=== PATIENT | male | born 1955 | race Two or more races ===

== ENCOUNTER 2019-06-25 07:41 | Inpatient (IN) | payer MEDICARE, OTHER ==
[~2019-06-25] VITALS: Ht 154.9 cm; Wt 61.6 kg
[2019-06-25] MEDS ORDERED: ACETAMINOPHEN 650 mg PER 20 mL UD PO ONE (10:30)
[2019-06-25] MEDS ORDERED: ACETAMINOPHEN 500 MG TAB PO ONE ×3 (10:35→17:15)
[2019-06-25 10:42] LABS: Basophils # (auto) 0.1 10 ^3/uL (0-0.2); Basophils % (auto) 0.3 % (0.0-2.0); Eosinophils # (auto) 0 10 ^3/uL (0-0.8); Hematocrit 33.6 % (41.0-53.0); Lymphocytes # (auto) 0.7 10 ^3/uL (0.4-5.4); Lymphocytes % (auto) 3.7 % (10.0-50.0); Mean Corpuscular Hemoglobin 29.3 pg (28.0-32.0); Mean Corpuscular Hgb Conc. 32.9 g/dL (32.0-36.0); Mean Corpuscular Volume 89.2 fL (80.0-100.0); Monocytes # (auto) 0.5 10 ^3/uL (0-1.3); Monocytes % (auto) 2.8 % (0.0-12.0); Neutrophils # (auto) 17.6 10 ^3/uL (1.6-8.6); Neutrophils % (auto) 93.2 % (37.0-80.0); Platelet Count (auto) 289 10^3/uL (140-450); Red Blood Cells 3.77 10^6/uL (4.5-5.90); Red Cell Distribution Width 14.2 % (11.8-14.3); White Blood Cell 18.8 10^3/uL (4.4-10.8)
[2019-06-25 11:01] LABS: Albumin 3.1 g/dL (3.4-5.0); Potassium 3.9 mmol/L (3.5-5.1)
[2019-06-25 11:04] LABS: BUN/Creatinine Ratio 20.7; Bilirubin, Total 0.6 mg/dL (0.2-1.0); Total Protein 7.6 g/dL (6.4-8.2)
[2019-06-25] MEDS ORDERED: cefTRIAXone 1GM/50ML D5W 50 ML IV ONE (11:15)
[2019-06-25] MEDS ORDERED: DEXTROSE (50%) 50ML SYRG IV PRN (12:00)
[2019-06-25] MEDS ORDERED: hydrALAZINE HCL 20 MG/ML VL IV PRN (12:00)
[2019-06-25] MEDS ORDERED: ONDANSETRON HCL 4 MG/2 ML VIAL IV PRN (12:00)
[2019-06-25] MEDS: AZITHROMYCIN 500MG/ 250ML 250 ML IV SCH (12:00)
[2019-06-25 12:24] LABS: Magnesium 1.8 mg/dL (1.6-2.6)
[2019-06-25] MEDS ORDERED: NITROGLYCERIN 0.4 MG SL TAB SL PRN (12:45)
[2019-06-25] MEDS ORDERED: MORPHINE SULF INJ 2 MG/ML SYRINGE 1ML IV PRN (12:45)
[2019-06-25] MEDS ORDERED: SODIUM CHLORIDE 0.9% 1,000 ML IV ONE (14:00)
[2019-06-25 14:09] VITALS: BP 116/67
[2019-06-25] MEDS ORDERED: HYDR25TA4 PO (14:27)
[2019-06-25] MEDS ORDERED: ATOR80TA PO (14:27)
[2019-06-25] MEDS ORDERED: LEVEMIR SC (14:27)
[2019-06-25] MEDS ORDERED: SITA50TA28 PO (14:27)
[2019-06-25] MEDS ORDERED: CETI10TA80 PO (14:27)
[2019-06-25] MEDS ORDERED: LOSA-39 PO (14:27)
[2019-06-25] MEDS ORDERED: ASPI-404 PO (14:27)
[2019-06-25] MEDS ORDERED: VENL75TA PO (14:27)
[2019-06-25] MEDS ORDERED: GLIM2TAB33 PO (14:27)
[2019-06-25] MEDS ORDERED: BACL10TA PO (14:27)
[2019-06-25] MEDS ORDERED: TRAZ50TA2 PO (14:27)
[2019-06-25] MEDS ORDERED: AMLO5TAB15 PO (14:27)
[2019-06-25 14:58] VITALS: BP 119/66
[2019-06-25] MEDS: MORPHINE SULF INJ 2 MG/ML SYRINGE 1ML IV PRN ×2 (15:24→18:15)
[2019-06-25] MEDS: ACETAMINOPHEN 500 MG TAB PO PRN ×2 (15:46→23:45)
[2019-06-25 16:28] VITALS: BP 130/71
--- NOTE | 2019-06-25 16:41 | NUR ---
TEMPERATURE PATIENTS ORAL TEMPERATURE 103.5, WILL APPLY COOLING MEASURES AND CONTINUE TO MONITOR
[2019-06-25] MEDS: ACCU-CHEK COMFORT CURVE STRIP VI SCH ×2 (17:20→22:13)
[2019-06-25] MEDS: InsuLIN REG 1unit/0.01ml Soln (100units/ml) SC SCH ×2 (17:23→22:12)
--- NOTE | 2019-06-25 17:46 | NUR ---
REASSESSMENT OF TEMPERATURE PATIENT ORAL TEMPERATURE 100.4, WILL CONTINUE WITH COOLING MEASURES AND MONITORING.
[2019-06-25] MEDS: ALBUTEROL SULF 2.5 MG/0.5ML(0.5%) NEB SOLN NEB SCH (17:56)
[2019-06-25] MEDS: IPRATROPIUM BROM 0.5 MG/2.5ML INH SOL NEB SCH (17:56)
--- NOTE | 2019-06-25 19:00 | NUR ---
Opening Shift Note Assumed care of patient, awake and alert. No S/S of distress/SOB or pain currently. Family at bedside. Pt currently to be with no blankets and with ice packs to lower temperature. Current temperature is 100.4. Will continue to monitor temperature and take cooling measures as needed.
[2019-06-25 20:00] VITALS: BP 145/79
--- NOTE | 2019-06-25 21:00 | NUR ---
Temperature down Temperature currently at 98.9, will continue to monitor.
[2019-06-25 22:00] VITALS: BP 145/79
--- NOTE | 2019-06-25 22:00 | NUR ---
Temperature going up Patients temperature at 99.8, will continue cooling measures and reassess pt.
--- NOTE | 2019-06-25 23:00 | NUR ---
Temperature cont. to go up. Pt found with blanket, current temperature at 101.3, will continue with cooling measures and administer tylenol as needed.
--- NOTE | 2019-06-26 02:30 | NUR ---
Temperature going back down. Pts temperature at 98.2 will tylenol and cooling measures, will continue to monitor.
[2019-06-26 03:34] LABS: Urine Bacteria NONE SEEN /hpf (None Seen); Urine Blood Negative /uL (Negative); Urine Specific Gravity 1.008 (1.001-1.035); Urine WBC <1 /hpf (0 - 3)
[2019-06-26] MEDS: MORPHINE SULF INJ 2 MG/ML SYRINGE 1ML IV PRN (03:58)
[2019-06-26 05:00] VITALS: BP 128/73
[2019-06-26 06:03] LABS: Basophils # (auto) 0 10 ^3/uL (0-0.2); Basophils % (auto) 0.3 % (0.0-2.0); Eosinophils # (auto) 0 10 ^3/uL (0-0.8); Eosinophils % (auto) 0.4 % (0.0-7.0); Hematocrit 30.2 % (41.0-53.0); Hemoglobin 10.6 g/dL (13.5-17.5); Lymphocytes # (auto) 1.3 10 ^3/uL (0.4-5.4); Lymphocytes % (auto) 11.8 % (10.0-50.0); Mean Corpuscular Hemoglobin 30.9 pg (28.0-32.0); Mean Corpuscular Hgb Conc. 35.2 g/dL (32.0-36.0); Mean Corpuscular Volume 87.8 fL (80.0-100.0); Monocytes # (auto) 0.8 10 ^3/uL (0-1.3); Monocytes % (auto) 7.7 % (0.0-12.0); Neutrophils # (auto) 8.7 10 ^3/uL (1.6-8.6); Neutrophils % (auto) 79.8 % (37.0-80.0); Platelet Count (auto) 260 10^3/uL (140-450); Red Blood Cells 3.44 10^6/uL (4.5-5.90); Red Cell Distribution Width 14.1 % (11.8-14.3); White Blood Cell 10.9 10^3/uL (4.4-10.8)
[2019-06-26] MEDS: ACCU-CHEK COMFORT CURVE STRIP VI SCH ×4 (06:18→21:48)
[2019-06-26 06:19] LABS: BUN/Creatinine Ratio 23.7; Calcium 9.2 mg/dL (8.5-10.1); Potassium 4.5 mmol/L (3.5-5.1)
[2019-06-26] MEDS: InsuLIN REG 1unit/0.01ml Soln (100units/ml) SC SCH ×4 (06:20→21:48)
[2019-06-26] MEDS: IPRATROPIUM BROM 0.5 MG/2.5ML INH SOL NEB SCH ×3 (06:42→19:08)
[2019-06-26] MEDS: ALBUTEROL SULF 2.5 MG/0.5ML(0.5%) NEB SOLN NEB SCH ×3 (06:42→19:08)
--- NOTE | 2019-06-26 07:40 | NUR ---
Opening Shift Note Assumed care of patient, awake and alert. No S/S of distress/SOB or pain. For safety, patients bed is locked, in the lowest position, with 2 side rails up and the call light with in reach. Patients family members currently at bedside. Instructed on POC and to call for assist PRN, will continue to monitor for any changes in condition.
[2019-06-26 08:00] VITALS: BP 131/71
[2019-06-26] MEDS: cefTRIAXone 1GM/50ML D5W 50 ML IV SCH (08:24)
[2019-06-26 09:00] VITALS: BP 131/71
[2019-06-26] MEDS: FAMOTIDINE 20 MG TAB PO SCH (09:26)
[2019-06-26] MEDS: AZITHROMYCIN 500MG/ 250ML 250 ML IV SCH (09:26)
[2019-06-26] MEDS: HYDROcodone-ACET 5/325MG TAB PO PRN (12:52)
[2019-06-26 13:00] VITALS: BP 140/72
--- NOTE | 2019-06-26 19:00 | NUR ---
Opening Shift Note Assumed care of patient, awake and alert. No S/S of distress/SOB or pain. Instructed on POC and to call for assist PRN, will continue to monitor for changes Q1hr and PRN.
[2019-06-26 22:00] VITALS: BP 138/73
[2019-06-27 05:00] VITALS: BP 151/81
[2019-06-27] MEDS: ACCU-CHEK COMFORT CURVE STRIP VI SCH ×3 (06:36→16:40)
[2019-06-27] MEDS: InsuLIN REG 1unit/0.01ml Soln (100units/ml) SC SCH ×3 (06:36→16:44)
[2019-06-27] MEDS: ALBUTEROL SULF 2.5 MG/0.5ML(0.5%) NEB SOLN NEB SCH ×2 (06:41→12:07)
[2019-06-27] MEDS: IPRATROPIUM BROM 0.5 MG/2.5ML INH SOL NEB SCH ×2 (06:41→12:07)
--- NOTE | 2019-06-27 06:51 | NUR ---
IV insertion IV access to left AC obtained, via clean sterile technique by inserting 20 gauge catheter after first attempt. IV secured properly. No trauma to site. Patient tolerated procedure well.
--- NOTE | 2019-06-27 07:48 | NUR ---
Opening Note Assumed pt care from NOC nurse. Pt is a/ox4 with no s/s of distress or SOB. Pt is currently sitting upright in bed with mild c/o pain loacted in his upper back, 09/26; discussed available pain medications. Discussed POC with pt; pt verbalized understanding. Safety measures maintained with call light within reach, bed in lowest position and side rails up. Will continue to monitor for changes.
[2019-06-27] MEDS: HYDROcodone-ACET 5/325MG TAB PO PRN (08:31)
[2019-06-27] MEDS: cefTRIAXone 1GM/50ML D5W 50 ML IV SCH (08:31)
[2019-06-27 09:00] VITALS: BP 142/64
[2019-06-27] MEDS: AZITHROMYCIN 500MG/ 250ML 250 ML IV SCH (09:51)
[2019-06-27] MEDS: FAMOTIDINE 20 MG TAB PO SCH (09:51)
[2019-06-27 13:00] VITALS: BP 155/75
[2019-06-27 16:48] VITALS: BP 150/84
--- NOTE | 2019-06-27 17:03 | NUR ---
Dr Calvert at Bedside MD to see pt. Plans to d/c pt home today. Will implement and continue to monitor.
[2019-06-27 17:15] VITALS: BP 150/84
[2019-06-27] MEDS ORDERED: levoFLOXacin 500 MG TAB PO ONE (17:15)
--- NOTE | 2019-06-27 17:23 | NUR ---
IV D/C'ed and Tele Box D/C IVs to pt's L wrist and R AC removed; catheters were removed fully intact. Sites are asymptomatic. Pressure was applied to both sites with gauze and then wrapped in coban. Pt instructed to keep dressing on for 30 minutes; pt verbalized understanding. Tele box 36 removed ans sent back to ICU. Staff made aware.
--- NOTE | 2019-06-27 17:45 | NUR ---
Pt D/C'ed Off Unit Pt d/c'ed off unit accompanied by his . Pt is a/ox4 with no s/s of distress or SOB. Pt provided all d/c paperwork, all followup appointment information, prescriptions, belongings and all questions were answered. Both IVs and tele box removed.
== END 2019-06-27 17:42 | disposition home or self-care (01) | DRG 194 ==
LOC: ER 07:41 → TELE 07:42 → TELE-CENTR 13:54
PROVIDERS: ADMIT Nurse Practitioner Acute Care; ATTEND Internal Medicine
DX: J18.9 Pneumonia, unspecified organism (principal); E44.0 Moderate protein-calorie malnutrition; E87.1 Hypo-osmolality and hyponatremia; D64.9 Anemia, unspecified; N18.3 Chronic kidney disease, stage 3 (moderate); E11.22 Type 2 diabetes mellitus with diabetic chronic kidney disease; F17.210 Nicotine dependence, cigarettes, uncomplicated; I12.9 Hypertensive chronic kidney disease with stage 1 through stage 4 chronic kidney disease, or unspecified chronic kidney disease; Z79.4 Long term (current) use of insulin; Z80.9 Family history of malignant neoplasm, unspecified; Z82.49 Family history of ischemic heart disease and other diseases of the circulatory system; Z83.3 Family history of diabetes mellitus; Z68.25 Body mass index [BMI] 25.0-25.9, adult
CPT/HCPCS: 36415; 71045; 71046; 80048; 80053; 81001; 82962; 83036; 83605; 83735; 83880; 84484; 85025; 87040; 87070; 87077; 87186; 87205; 87804; 93005; 94640; 96361; 96365; 96367; G0378; J0696; J1815

== ENCOUNTER 2021-05-01 14:09 | Emergency (ER) | payer OTHER ==
[~2021-05-01] VITALS: Ht 167.6 cm; Wt 63.5 kg
[~2021-05-01 14:09] MED LIST: AMLO-489 PO; ASPI-543 PO; ATOR80TA PO; BACL10TA PO; CETI10TA2 PO; GLIM2TAB33 PO; HYDR25TA4 PO; LEVEMIR SC; LOSA-39 PO; SITA50TA28 PO; TRAZ50TA2 PO; VENL1TAB99 PO
[2021-05-01] MEDS ORDERED: LACTATED RINGER'S 1,000 ML IV ONE (16:00)
[2021-05-01 16:13] LABS: Urine Bacteria NONE SEEN /hpf (None Seen); Urine Blood Negative /uL (Negative); Urine WBC <1 /hpf (0 - 3)
[2021-05-01 16:45] LABS: Basophils # (auto) 0 10 ^3/uL (0-0.2); Basophils % (auto) 0.4 % (0.0-2.0); Eosinophils # (auto) 0 10 ^3/uL (0-0.8); Eosinophils % (auto) 0.5 % (0.0-7.0); Hematocrit 28.1 % (41.0-53.0); Hemoglobin 9.3 g/dL (13.5-17.5); Lymphocytes # (auto) 0.8 10 ^3/uL (0.4-5.4); Lymphocytes % (auto) 8.5 % (10.0-50.0); Mean Corpuscular Hemoglobin 29.8 pg (28.0-32.0); Mean Corpuscular Volume 90.2 fL (80.0-100.0); Monocytes # (auto) 0.6 10 ^3/uL (0-1.3); Monocytes % (auto) 6.9 % (0.0-12.0); Neutrophils # (auto) 7.6 10 ^3/uL (1.6-8.6); Neutrophils % (auto) 83.7 % (37.0-80.0); Red Blood Cells 3.12 10^6/uL (4.5-5.90); Red Cell Distribution Width 15.1 % (11.8-14.3); White Blood Cell 9.1 10^3/uL (4.4-10.8)
[2021-05-01 17:03] VITALS: BP 136/77
[2021-05-01 17:05] LABS: Calcium 9.2 mg/dL (8.5-10.1); Potassium 4.7 mmol/L (3.5-5.1)
[2021-05-01 17:08] LABS: Bilirubin, Total 0.5 mg/dL (0.2-1.0); Total Protein 7.5 g/dL (6.4-8.2)
[2021-05-01 17:13] LABS: Magnesium 1.4 mg/dL (1.6-2.6); Phosphorus 2.5 mg/dL (2.5-4.90)
== END 2021-05-01 17:40 | disposition short-term general hospital (02) ==
LOC: ER 14:09 → EDBD 14:09 → ER 17:40
DX: S06.5X0A Traumatic subdural hemorrhage without loss of consciousness, initial encounter (principal); E11.9 Type 2 diabetes mellitus without complications; I10 Essential (primary) hypertension; E78.5 Hyperlipidemia, unspecified; F17.210 Nicotine dependence, cigarettes, uncomplicated; X58.XXXA Exposure to other specified factors, initial encounter; Y93.89 Activity, other specified; Y92.89 Other specified places as the place of occurrence of the external cause; Y99.8 Other external cause status
CPT/HCPCS: 36415; 36600; 70450; 71045; 80053; 81001; 82010; 82805; 82962; 83735; 83930; 84100; 85025; 96360; 99291

== ENCOUNTER 2022-12-06 00:59 | Emergency (ER) | payer OTHER ==
[~2022-12-06] VITALS: Ht 167.6 cm; Wt 68.0 kg
[~2022-12-06 00:59] MED LIST changes: -AMLO-489 PO; +AMLO1TAB22 PO; -LOSA-39 PO; +LOSA100T58 PO; +TRAZ-227 PO; -TRAZ50TA2 PO
[2022-12-06 01:30] VITALS: TEMP 98
[2022-12-06 01:33] LABS: Basophils # (auto) 0.1 10 ^3/uL (0-0.2); Basophils % (auto) 0.7 % (0.0-2.0); Eosinophils # (auto) 0.1 10 ^3/uL (0-0.8); Eosinophils % (auto) 1.3 % (0.0-7.0); Hematocrit 38.2 % (41.0-53.0); Hemoglobin 12.9 g/dL (13.5-17.5); Lymphocytes # (auto) 3.1 10 ^3/uL (0.4-5.4); Lymphocytes % (auto) 34.5 % (10.0-50.0); Mean Corpuscular Hemoglobin 30.1 pg (28.0-32.0); Mean Corpuscular Hgb Conc. 33.7 g/dL (32.0-36.0); Mean Corpuscular Volume 89.4 fL (80.0-100.0); Monocytes # (auto) 0.8 10 ^3/uL (0-1.3); Monocytes % (auto) 8.3 % (0.0-12.0); Neutrophils % (auto) 55.2 % (37.0-80.0); Nucleated Red Blood Cells % 0.1 %; Red Blood Cells 4.27 10^6/uL (4.5-5.90); Red Cell Distribution Width 14.4 % (11.8-14.3)
[2022-12-06 01:50] VITALS: RESP 12; O2SAT 99
[2022-12-06 01:55] LABS: Albumin 4.5 g/dL (3.4-5.0); BUN/Creatinine Ratio 16.9 (10.0-20.0); Calcium 9.3 mg/dL (8.5-10.1); Magnesium 1.7 mg/dL (1.6-2.6); Potassium 4.2 mmol/L (3.5-5.1)
[2022-12-06 01:56] LABS: INR 1.02 (0.9-1.15); Partial Thromboplastin Time 30.3 SEC (24.5-34.5); Prothrombin Time 10.7 sec (9.3-11.8)
[2022-12-06 01:58] LABS: Bilirubin, Total 0.4 mg/dL (0.2-1.0); Total Protein 7.7 g/dL (6.4-8.2)
[2022-12-06] MEDS ORDERED: ASPirin 325 MG TAB PO ONE (02:15)
[2022-12-06 07:20] VITALS: PULSE 77; RESP 19; O2SAT 99
[2022-12-06 09:13] VITALS: BP 127/88; PULSE 85; RESP 15; O2SAT 98
[2022-12-06 12:43] LABS: Urine Bacteria NONE SEEN /hpf (None Seen); Urine Blood Negative /uL (Negative); Urine Clarity Clear (Clear); Urine Color Colorless (Yellow); Urine Protein, UAD Negative (Negative); Urine Specific Gravity 1.006 (1.001-1.035); Urine Urobilinogen Normal (Negative); Urine WBC 1 /hpf (0 - 3); Urine pH 6.5 (5.0-8.0)
== END 2022-12-06 10:13 | disposition left against medical advice (07) ==
LOC: ER 00:59 → EDUNIT# 00:59 → EDBD 00:59 → ER 10:12
DX: R07.9 Chest pain, unspecified (principal); R00.0 Tachycardia, unspecified; E11.9 Type 2 diabetes mellitus without complications; E78.5 Hyperlipidemia, unspecified; I10 Essential (primary) hypertension; F17.210 Nicotine dependence, cigarettes, uncomplicated; R06.02 Shortness of breath
CPT/HCPCS: 36415; 71045; 80053; 81001; 83735; 83880; 84484; 85025; 85379; 85610; 85730; 93005